=== PATIENT | male | born 1985 | race Caucasian/White ===

== ENCOUNTER 2017-06-16 13:20 | Emergency (ER) | payer SELFPAY ==
[~2017-06-16] VITALS: Ht 170.2 cm; Wt 74.8 kg
[2017-06-16 14:19] LABS: HEMATOCRIT 46.3 % (38.0-50.0); MCH 29.1 PG (29.0-34.0); MCHC 33.5 G/DL (30.0-36.0); MCV 86.9 FL (86-99); MEAN PLAT.VOLUME 10.6 uM^3 (9.0-12.4); PLATELET COUNT 227 K/uL (156-360); RBC DIS.WIDTH-CV 11.8 % (11.8-14.6); RBC DIS.WIDTH-SD 37.7 % (39-53); RED BLOOD COUNT 5.33 M/uL (4.00-5.50)
[2017-06-16 14:29] LABS: CHLORIDE 104 mEq/L (99-109); POTASSIUM 4.1 mEq/L (3.7-5.4); SODIUM 140 mEq/L (136-147)
[2017-06-16 14:30] LABS: GLUCOSE 64 mg/dL (70-99)
[2017-06-16 14:32] LABS: ANION GAP 11 MEQ/L (2-14)
[2017-06-16 14:33] LABS: AMPHETAMINE NEGATIVE (500 ng/mL); BARBITURATES NEGATIVE (200 ng/mL); BENZODIAZEPINES NEGATIVE (150 ng/mL); COCAINE NEGATIVE (150 ng/mL); INTERNAL CONTROLS VALID? YES; METHADONE NEGATIVE (200 ng/mL); METHAMPHETAMINE NEGATIVE (500 ng/mL); OPIATES (MORPHINE) NEGATIVE (100 ng/mL); OXYCODONE PRESUMPTIVE POSITIVE (100 ng/mL); PHENCYCLIDINE NEGATIVE (25 ng/mL); PROPOXYPHENE NEGATIVE (300 ng/mL); THC CANNABINOIDS NEGATIVE (50 ng/mL); TRICYCLIC ANTIDEPRESSANTS NEGATIVE (300 ng/mL)
[2017-06-16 14:34] LABS: GFR ESTIMATE (CALCULATED) > 59 mL/min/; SERUM ETHYL ALCOHOL < 10 mg/dL
[2017-06-16 14:35] LABS: UREA NITROGEN (BUN) 9 mg/dL (9-23)
[2017-06-16 15:36] LABS: POINT-OF-CARE METER ID UU14100415
[2017-06-16 16:14] VITALS: BP 124/84
== END 2017-06-16 16:19 | disposition home or self-care (01) ==
LOC: EME 13:20
PROVIDERS: Emergency Medicine
DX: F32.9 Major depressive disorder, single episode, unspecified (principal); E16.2 Hypoglycemia, unspecified; F43.23 Adjustment disorder with mixed anxiety and depressed mood; Z63.0 Problems in relationship with spouse or partner; F17.200 Nicotine dependence, unspecified, uncomplicated
CPT/HCPCS: 80048; 82948; 85027; 90837; 99281; 99284; G0480